=== PATIENT | male | born 1955 | race Caucasian/White ===

== ENCOUNTER 2018-01-22 10:26 | Inpatient (IN) | payer OTHER ==
--- NOTE | 2018-01-17 12:22 | HP ---
AMENDED REPORT NOW INCLUDES DESIGNATION COSIGNER - ESIGNED BEFORE ADJUSTMENT HISTORY AND PHYSICAL: DATE OF SURGERY: 01/22/18 DATE OF OFFICE VISIT: 01/09/18 SURGEON: Hanna Munoz MD.* (DICTATED BY CORRIE LEONE) PROCEDURE: Right total hip arthroplasty. CHIEF COMPLAINT: Right hip pain. HISTORY OF PRESENT ILLNESS: Mr. John is a 62-year-old gentleman with complaints of right hip pain. He has failed conservative management and elected to proceed with a right total hip arthroplasty, which is scheduled for 01/22/[address] Munoz. PAST MEDICAL HISTORY: Denies. PAST SURGICAL HISTORY: Right knee surgery, unknown. CURRENT MEDICATIONS: Ibuprofen 600 mg as needed. ALLERGIES: None. FAMILY HISTORY: Denies. SOCIAL HISTORY: This is a 62-year-old gentleman, he denies the use of tobacco, drugs or alcohol. REVIEW OF SYSTEMS: A complete 14-point review of systems was reviewed with the patient and was all negative and not contributory. PHYSICAL EXAMINATION GENERAL: He is well developed, well nourished, in no acute distress. VITAL SIGNS: He stands 69 inches tall, weighs 173 pounds, blood pressure 134/70 , heart rate 60. HEENT: Normocephalic, atraumatic. NECK: Supple. No palpable lymph nodes. PULMONARY: Lungs are clear to auscultation bilaterally. CARDIO: Regular rate and rhythm. Strong S1, S2. ABDOMEN: Soft, nontender, nondistended. NEUROLOGIC: He is alert and oriented x3. Cranial nerves II through XII are intact. MUSCULOSKELETAL: Right lower extremity, the skin is intact. There are no open wounds or abrasions. He walks with antalgic type gait favoring the right hip. He has decreased internal and external rotation of the right hip. He has 2+ dorsalis pedis pulses, intact sensation in his lower extremities. Muscle group strengths are intact at 5/5. ASSESSMENT AND PLAN: Mr. John is a 62-year-old gentleman with complaints of right hip pain secondary to end-stage osteoarthritis. He has failed conservative management and elected to proceed with a right total hip arthroplasty, which is scheduled for 01/22/[address] Munoz discussed the risks, the benefits of the surgery at today's visit and all of his questions were answered. He will follow up with Dr. Munoz 2 weeks after the surgery. CORRIE LEONE [id number]/[facility]PS #: [id number] SLICK
[~2018-01-22 10:26] MED LIST: Acetaminophen IV 1GM/100ML * 1,000 MG/100 ML VIAL IVPB ONE; Buffered Lidocaine 0.9% SYRIN* 5 ML/SYR SYRINGE INTRADERM ONE; Dexamethasone IV* 4 MG/ML 1 ML (4 MG) IV SLOW PU ONE; Famotidine IV* 10 MG/ML 2 ML (20 mg) IV ONE; Gabapentin CAP(*) 300 MG PO ONE; Ondansetron ODT TAB* 4 MG PO ONE; celeCOXIB CAP* 200 MG PO ONE
[2018-01-22] MEDS ORDERED: Famotidine IV* 10 MG/ML 2 ML (20 mg) ONE (10:28)
[2018-01-22] MEDS ORDERED: Dexamethasone IV* 4 MG/ML 1 ML (4 MG) ONE (10:29)
[2018-01-22] MEDS ORDERED: celeCOXIB CAP* 100 MG ONE (10:29)
[2018-01-22] MEDS ORDERED: Ondansetron ODT TAB* 4 MG ONE (10:29)
[2018-01-22] MEDS ORDERED: Gabapentin CAP(*) 300 MG ONE (10:29)
[2018-01-22] MEDS ORDERED: ceFAZolin 2 GM PREMIX (*) 2 GM/50 ML BAG IVPB ONE (10:30)
[2018-01-22] MEDS ORDERED: Acetaminophen IV 1GM/100ML * 100 ML ONE (11:25)
[2018-01-22] MEDS ORDERED: Lidocaine 2% PF * 5 ML VIAL ONE (12:43)
[2018-01-22] MEDS ORDERED: Bupivacaine 0.5% PF 10 ML VIAL INJ ONE (12:43)
[2018-01-22] MEDS ORDERED: fentaNYL* 50 MCG/ML 2 ML VIAL (100 MCG VIAL) ONE ×2 (12:43→15:11)
[2018-01-22] MEDS ORDERED: Midazolam* 1 MG/ML 5 ML VIAL (5 MG) ONE ×2 (12:43→14:36)
[2018-01-22] MEDS ORDERED: ROPIVACAINE 5 MG/ML 30 ML BTL (0.5%) ONE (13:26)
[2018-01-22] MEDS ORDERED: Ropivacaine (OR use only) 2 MG/ML 10 ML ONE (13:26)
[2018-01-22] MEDS ORDERED: fentaNYL* 50 MCG/ML 2 ML VIAL (100 MCG VIAL) IV PRN (16:07)
[2018-01-22] MEDS ORDERED: DiMENhydriNATE IV* 50 MG/ML VIAL IV PUSH PRN (16:07)
[2018-01-22] MEDS ORDERED: HYDROmorphone INJ* 1 MG/ML CARPUJECT SYRINGE IV PRN (16:07)
[2018-01-22] MEDS ORDERED: Naloxone* 0.4 MG/ML 1 ML VIAL IV PRN (16:07)
[2018-01-22] MEDS ORDERED: Ondansetron INJ* 2 MG/ML VIAL IV PRN (16:07)
[2018-01-22] MEDS ORDERED: oxyCODONE/Acetamin 5/325 MG* TAB PO PRN (16:07)
[2018-01-22] MEDS ORDERED: Magnesium Hydroxide LIQ* 30 ML UDC PO PRN (16:25)
[2018-01-22] MEDS ORDERED: traZODone TAB* 50 MG TAB PO PRN (16:30)
[2018-01-22] MEDS ORDERED: Morphine VIAL* 4 MG/ML VIAL (1 ml vial) IV PRN (16:30)
[2018-01-22] MEDS ORDERED: Ondansetron 40 MG VIAL* 2 MG/ML 20 ML VIAL IV PRN (16:30)
[2018-01-22] MEDS ORDERED: Polyethylene Glycol 3350* 17 GM PACKET PO PRN (16:30)
[2018-01-22] MEDS ORDERED: Cyclobenzaprine TAB* 10 MG PO PRN (16:30)
[2018-01-22] MEDS ORDERED: Propofol* 10 MG/ML 20 ML BTL IV PUSH ONE (16:48)
--- NOTE | 2018-01-22 17:10 | RAD ---
Indication: Right hip replacement. Single image of the right hip demonstrates acetabular cup in place with right femoral reamer in place. IMPRESSION: Intraoperative control films for right hip replacement.
--- NOTE | 2018-01-22 19:04 | RAD ---
Indication: Right hip replacement. 2 views of the right hip demonstrates right hip replacement in satisfactory position. IMPRESSION: Right hip replacement in satisfactory position.
--- NOTE | 2018-01-22 19:04 | RAD ---
Indication: Right hip replacement. Single low AP view the pelvis demonstrates the visualized pelvis to be unremarkable. Right hip replacement in satisfactory position. IMPRESSION: Bipolar right hip replacement is satisfactory position.
[2018-01-22] MEDS ORDERED: Warfarin TAB(*) 6 MG PO ONE (21:15)
[2018-01-22] MEDS: oxyCODONE/Acetamin 5/325 MG* TAB PO PRN (21:37)
[2018-01-22] MEDS: Enoxaparin(*) 40 MG/0.4 ML SYR SUBCUT SCH (21:38)
[2018-01-22] MEDS: Docusate CAP* 100 MG PO SCH (21:38)
[2018-01-22] MEDS: Ferrous Sulfate TAB* 325 MG PO SCH (21:38)
[2018-01-22] MEDS: Magnesium Hydroxide LIQ* 30 ML UDC PO SCH (21:42)
[2018-01-22] MEDS: ceFAZolin 1 GM in Dextrose (*) 1 GM/50 ML BAG IVPB SCH (22:24)
[2018-01-23 05:37] LABS: Hematocrit 29 % (42-52); Hemoglobin 9.9 g/dl (14.0-18.0); Mean Platelet Volume 7.9 um3 (7.4-10.4); Platelet Count 185 10^3/ul (150-450)
[2018-01-23] MEDS: oxyCODONE TAB* 5 MG TAB PO PRN ×3 (05:42→23:46)
[2018-01-23 05:56] LABS: EGFR Non-African American 77.9 (>60)
[2018-01-23] MEDS: ceFAZolin 1 GM in Dextrose (*) 1 GM/50 ML BAG IVPB SCH ×2 (06:13→15:03)
[2018-01-23] MEDS: oxyCODONE/Acetamin 5/325 MG* TAB PO PRN ×3 (09:26→21:05)
[2018-01-23] MEDS: Magnesium Hydroxide LIQ* 30 ML UDC PO SCH ×2 (09:26→21:05)
[2018-01-23] MEDS: Ferrous Sulfate TAB* 325 MG PO SCH ×2 (09:26→21:04)
[2018-01-23] MEDS: Docusate CAP* 100 MG PO SCH ×2 (09:26→21:05)
--- NOTE | 2018-01-23 09:39 | PN ---
Progress Note - Progress Note Date of Service: 01/23/18 SOAP: Subjective: 62 y/o s/p R GRIFFIN 01/[address] Munoz. VSS, afebrile overnight. Patient states increased pain, but pain medication working well. Pain with sitting upright, working with PT> Objective: General- Well appearing, NAD, AO sitting in chair comfortably MSK- RLE- DF/PF = b/l, PT 2+, negative homans sign, surgical dressing intact, no drainge noted, no induration, erythema noted, Vital Signs Temp 97.9 F 01/23/18 07:12 Pulse 61 01/23/18 07:12 Resp 16 01/23/18 09:26 BP 113/62 01/23/18 07:12 Pulse Ox 100 01/23/18 07:12 Intake & Output 01/22/18 01/23/18 01/23/18 18:59 06:59 18:59 Intake Total 2550 1050 330 Output Total 950 700 Balance 1600 350 330 Intake: IV Fluids 2550 NS 50ML, Cefazolin 2G 50 lr 2500 Oral 1050 330 Output: Aguilera 700 700 Estimated Blood Loss 250 Other: # Bowel Movements 0 Assessment: Stable 62 y/o s/p R GRIFFIN 01/[address] Munoz. Plan: - DVT prophylaxis- lovenox, coumadin 8mg tonight. - Continue PT/ OT - Follow up with Dr. Munoz within 10-14 days - H&H - stable - post-op IV ABX - running - [place] with case manageer- [facility] - Possible D/C tomorrow if placement OK'd Cyclobenzaprine HCl (Flexeril Tab*) 5 mg PO TID PRN PRN Reason: SPASMS Docusate Sodium (Colace Cap*) 100 mg PO BID [facility] Last Admin: 01/23/18 09:26 Dose: 100 mg Enoxaparin Sodium (Lovenox(*)) 40 mg SUBCUT Q24H [facility] Last Admin: 01/22/18 21:38 Dose: 40 mg Ferrous Sulfate (Ferrous Sulfate Tab*) 325 mg PO BID [facility] Last Admin: 01/23/18 09:26 Dose: 325 mg Cefazolin Sodium/Dextrose (Kefzol 1 Gm In Dextrose Duplex (*)) 1 gm in 50 mls @ 200 mls/hr IVPB Q8H [facility] Stop: 01/23/18 15:14 Last Admin: 01/23/18 06:13 Dose: 200 mls/hr Lactated Ringer's (Lactated Ringers 1000 Ml Bag*) 1,000 mls @ 75 mls/hr IV PER RATE [facility] Last Admin: 01/22/18 21:39 Dose: 75 mls/hr Lactulose (Lactulose*) 30 ml PO Q6H PRN PRN Reason: constipation Magnesium Hydroxide (Milk Of Magnesia Liq*) 30 ml PO BID [facility] Last Admin: 01/23/18 09:26 Dose: 30 ml Magnesium Hydroxide (Milk Of Magnesia Liq*) 30 ml PO Q6H PRN PRN Reason: constipation Morphine Sulfate (Morphine Vial*) 2 mg IV Q2H PRN PRN Reason: PAIN Ondansetron HCl (Zofran 40 Mg Vial*) 4 mg IV Q6H PRN PRN Reason: nausea Oxycodone HCl (Roxycodone Tab*) 10 mg PO Q4H PRN PRN Reason: PAIN - SEVERE Last Admin: 01/23/18 05:42 Dose: 10 mg Oxycodone/Acetaminophen (Percocet 5/325 Tab*) 2 tab PO Q4H PRN PRN Reason: PAIN - MODERATE Last Admin: 01/23/18 09:26 Dose: 2 tab Oxycodone/Acetaminophen (Percocet 5/325 Tab*) 1 tab PO Q4H PRN PRN Reason: PAIN Polyethylene Glycol/Electrolytes (Miralax*) 17 gm PO DAILY PRN PRN Reason: Constipation Trazodone HCl (Desyrel Tab*) 25 mg PO BEDTIME PRN PRN Reason: insomnia Last Admin: 01/22/18 22:56 Dose: 25 mg Warfarin Sodium (Coumadin Tab(*)) 8 mg PO ONCE@1700 ONE PRN Reason: Protocol Stop: 01/23/18 17:01
[2018-01-23] MEDS ORDERED: Warfarin TAB(*) 4 MG PO ONE (17:00)
[2018-01-23] MEDS: Enoxaparin(*) 40 MG/0.4 ML SYR SUBCUT SCH (21:06)
--- NOTE | 2018-01-24 02:14 | OP ---
OPERATIVE REPORT: DATE OF OPERATION: 01/22/18 DATE OF : 51 ATTENDING SURGEON: Hanna Munoz MD HAND CHAIN MAKER: CORRIE Vargas Ms. did help throughout the procedure with preparation of the leg, wound retraction, manipul ation of the hip, and wound closure. ANESTHESIOLOGIST: Dr. Ramírez. ANESTHESIA: Spinal. PRE-OP DIAGNOSIS: Severe end-stage degenerative osteoarthritis of the right hip joint. POST-OP DIAGNOSIS: Severe end-stage degenerative osteoarthritis of the right hip joint. OPERATIVE PROCEDURE: Right total hip arthroplasty. COMPLICATIONS: None. ESTIMATED BLOOD LOSS: 300 cc. SPECIMEN: Femoral head and acetabular reaming sent to pathology. HARDWARE USED: This is uncemented [employer] total hip arthroplasty hardware. For the cup, a Tritanium cluster hole shell 54E, a single 20 mm screw was used. For liner, a Trident X3 0-degree polyethylen e insert 40E. For the stem, an Accolade TMZF size 3 with a 127-degree neck. For the head, a Biolox delta ceramic V40 femoral head 40 +0. BRIEF HISTORY/INDICATION: Mr. John is a 62-year-old inmate with years of increasingly severe right hip pain. Radiographs showed severe [id number] arthritis. He failed conservative treatment with activity modification, anti- inflammatories, and physical therapy. Due to continued pain and decreas ed quality of life, he wished to proceed with right total hip arthroplasty. Informed consent was obt ained from the patient. He understood the risks of surgery included, but were not limited to bleedin g, infection, damage to nearby structures, continued pain, need for further surgery, intraoperative f racture, nerve palsy, hardware failure or loosening, dislocation, leg length discrepancy, stroke, hea rt attack, blood clot, and . He wished to proceed. INTRAOPERATIVE FINDINGS: Intraoperatively, the patient was noted to have complete loss of cartilage along the acetabulum and femoral head. He had significant osteophyte formation around the femoral he ad and neck. DESCRIPTION OF PROCEDURE: Mr. John was identified in the preanesthesia unit. Right lower extremity was marked as the correct operative side. Informed consent was signed and placed in the chart. The patient was taken to the operating room and placed under spinal anesthesia. A Aguilera catheter was pl aced. The patient was placed in the left lateral decubitus position on the pegboard. All bony promi nences were well padded. Right lower extremity was prepped and draped in the usual sterile fashion. Preop time-out was made to correctly identify the patient's side and site. Appropriate perioperativ e antibiotics were given within 1 hour of incision. A 12-cm posterior hip incision was made with a 10 blade and carried down to the lateral fascial layer . Lateral fascial layer was incised in line with the skin incision. A Charnley retractor was placed . The piriformis and conjoined tendons were identified and elevated off the posterolateral femur wit h electrocautery. These were tagged with #5 Ethibond. Next, the electrocautery was used to make a po sterolateral capsular flap. This was tagged with #5 Ethibond. The hip was carefully dislocated. Le sser troch to the center of the femoral head measured 60 mm. The oscillating saw was used to make th e appropriate femoral neck cut. Femoral head was carefully removed. The femur was retracted anteriorly. After appropriate placement of retractors, the acetabulum was we ll visualized. A long-handled knife was used to sharply remove any remaining labrum from the acetabu lar rim. The acetabulum was sequentially reamed up to a size 53. Bleeding subchondral bone bed was obtained. A 53 trial had excellent fit with a appropriate anteversion and abduction angle. Final im plant chosen was a 54E Tritanium cluster hole shell. This was impacted into the acetabulum. Stabili ty of the cup was excellent. There was appropriate anteversion and abduction angle. Next, a 20-mm s crew was placed in the superoposterior quadrant. A 40E Trident 0-degree polyethylene insert was chos en as the final insert. The insert was impacted into the acetabulum. Stability of the insert was ch ecked and rechecked and noted to be stable. Attention was next turned to preparation of the femoral canal. A canal finder was used to enter the proximal femur. Proximal femur was sequentially broached up to a size 3. Size-3 broach had excellen t fit. A 127 neck trial was chosen as well as a 40 +0 head trial. Lesser troch to center of the fem oral head measured 61 mm. The hip was reduced and taken through a range of motion. The hip was stab le in all positions. Soft tissue tension and leg length were deemed to be appropriate. The hip was carefully dislocated. All trials were removed. Final implant chosen was an Accolade TMZF size 3 wit h a 127-degree neck. The femoral stem was impacted into the femoral canal without difficulty. [place] lent stability and appropriate anteversion were obtained. A 40 +0 Biolox delta ceramic V40 femoral h ead was chosen as the final implant. This was impacted on to the femoral neck without difficulty. T he hip was reduced and taken through a range of motion. The hip was stable in all positions. There was appropriate soft tissue tension and leg lengths. The hip was copiously irrigated with sterile sa line. Previously tagged tendon and capsule were reapproximated to the posterolateral femur through 2 trochanteric drill holes. The lateral fascial layer was closed using interrupted #[address] of the incision was closed in a layered fashion using 0 and 2- 0 Vicryl. Skin was closed using ru nning 3-0 Monocryl suture and Dermabond. Sterile Adaptic, 4x4s, and paper tape were placed over the i ncision. The patient's anesthesia was reversed without difficulty. He was taken to the PACU in stable conditi on. Intended weightbearing will be weightbearing as tolerated. Intended DVT prophylaxis will be Coum gagan with a Lovenox bridge. [id number]/[facility] #: [id number]
[2018-01-24] MEDS: oxyCODONE TAB* 5 MG TAB PO PRN (04:27)
[2018-01-24 05:56] LABS: Hematocrit 26 % (42-52); Hemoglobin 8.8 g/dl (14.0-18.0); Platelet Count 162 10^3/ul (150-450)
[2018-01-24 06:01] LABS: INR 1.19 (0.77-1.02)
[2018-01-24] MEDS: oxyCODONE/Acetamin 5/325 MG* TAB PO PRN ×2 (07:42→16:20)
[2018-01-24] MEDS: Ferrous Sulfate TAB* 325 MG PO SCH (08:16)
[2018-01-24] MEDS: Magnesium Hydroxide LIQ* 30 ML UDC PO SCH (08:16)
[2018-01-24] MEDS: Docusate CAP* 100 MG PO SCH (08:16)
--- NOTE | 2018-01-24 15:00 | PN ---
Progress Note - Progress Note Date of Service: 01/24/18 SOAP: Subjective: 62 y/o s/p R GRIFFIN 01/[address] Munoz. VSS, afebrile overnight. Pain well controlled. Pain with sitting comfortably in chair. Objective: Vital Signs Temp 98.3 F 01/24/18 11:30 Pulse 74 01/24/18 11:30 Resp 16 01/24/18 11:30 BP 121/58 01/24/18 11:30 Pulse Ox 99 01/24/18 11:30 Intake & Output 01/23/18 01/24/18 01/24/18 18:59 06:59 18:59 Intake Total 2702 750 1130 Output Total 300 1750 500 Balance 2402 -1000 630 Intake: IV Fluids 1327 LR 1327 IVPB 165 LR 165 Oral 2768 543 2966 Output: Urine 300 1750 500 Laboratory Results - last 24 hr 01/24/18 01/24/18 05:27 05:27 Hgb 8.8 L Hct 26 L Plt Count 162 MPV 8.0 INR (Anticoag Therapy) 1.19 H General: WN, WD, NAD, A&O, sitting comfortably in chair, guards in room. RLE: Dressing clean, removed. Incision C/D/I with no drainage or induration or erythema. DF/PF = b/l, PT 2+, calf soft, negative homans sign. Dressing replaced. Assessment: 62 y/o s/p R GRIFFIN 01/[address] Munoz. Plan: - [facility] - DVT prophylaxis- 325 mg ASA BID. - Continue PT/ OT - Follow up with Dr. Munoz within 10-14 days - H&H - stable
[2018-01-24 15:19] VITALS: BP 115/57
--- NOTE | 2018-01-24 21:42 | DS ---
AMENDED REPORT NOW INCLUDES COSIGNER DESIGNATION - ESIGNED BEFORE ADJUSTMENTS DISCHARGE SUMMARY: DATE OF ADMISSION: 01/22/18 DATE OF DISCHARGE: 01/24/18 ATTENDING PHYSICIAN: Hanna Munoz MD * (DICTATED BY CORRIE BUSTILLOS) CHIEF COMPLAINT: Right hip osteoarthritis. DISCHARGE DIAGNOSIS: Status post right total hip arthroplasty. PROCEDURE: Right total hip arthroplasty. CONSULTATIONS: Physical Therapy, Occupational Therapy. BRIEF HISTORY: Mr. John is a 62-year-old male, who was admitted to [facility] on 01/22/18, where he underwent a right total hip arthroplasty with Dr. Munoz. HOSPITAL COURSE: Mr. John is a 62-year-old male, who was admitted to [facility] on 01/22/18, where he underwent a right total hip arthroplasty with Dr. Munoz. Postoperatively, he recovered on the short-stay unit. On postop day 1, his Aguilera catheter was removed and he was able to urinate on his own. He was advanced to regular diet without difficulty. Pain was controlled with p.o. oxycodone. Labs and vital signs remained stable. He was able to weight bear as tolerated on his right lower extremity. He was advanced appropriately with physical therapy and occupational therapy. DVT prophylaxis was managed with Lovenox and Coumadin on the unit. By postoperative day 2, he was orthopedically and medically stable for discharge to [facility] with services. PHYSICAL EXAMINATION: Well-nourished, well-developed, in no acute distress, alert and oriented, sitting comfortably in a chair with guards in the room. Vital Signs: Temperature 98.3, pulse 74, respiration 16, blood pressure 121/58. Examination of the right lower extremity showed dressing that was clean. His incision was clean, dry, and intact with no drainage, induration, or erythema. He had good dorsi and plantarflexion bilaterally. PT pulse was 2+. Calf was soft. Sensation intact to light touch distally. The dressing was replaced today. LABORATORY DATA: Laboratory results on date of discharge: Hemoglobin 8.8, hematocrit 26, platelet count 162. INR of 1.19. DIAGNOSTIC STUDIES: Radiographs of the right hip demonstrate right total hip arthroplasty with satisfactory prosthesis placement and no acute bony abnormalities. DISCHARGE MEDICATIONS: 1. Ibuprofen 600 mg as needed for pain. 2. Percocet 5/325 one to two tabs every 4 to 6 hours as needed for pain. 3. Aspirin 325 b.i.d. for DVT prophylaxis. CONDITION ON DISCHARGE: Stable. DISCHARGE INSTRUCTIONS: Mr. John is a 62-year-old male, who is postoperative day 2 status post right total hip arthroplasty, which was uncomplicated. He is medically and orthopedically stable for discharge to the [facility] where he will recover on the medical unit. Prior to discharge his labs and vital signs were stable. He will take 325 aspirin b.i.d. for DVT prophylaxis. He will remain weightbearing as tolerated on the right lower extremity. He will take Percocet as needed for pain control. He will follow up with Dr. Munoz in 10 to 14 days for incision check and suture removal. He was instructed to tell the medical foster that he will be on immediately if he develops chest pain or shortness of breath. If he develops fever or increasing pain or redness, he should call the office. CORRIE BUSTILLOS [id number]/[facility] #: [id number] SLICK
== END 2018-01-24 16:25 | disposition home or self-care (01) | DRG 301 ==
LOC: AA 10:26 → SSU 20:49
PROVIDERS: ADMIT Orthopaedic Surgery Adult Reconstructive Orthopaedic Surgery; ATTEND Orthopaedic Surgery Adult Reconstructive Orthopaedic Surgery
PROC: 0SR904A Replacement of Right Hip Joint with Ceramic on Polyethylene Synthetic Substitute, Uncemented, Open Approach (ICD-10-PCS; principal; 2018-01-22 13:00)
DX: M16.11 Unilateral primary osteoarthritis, right hip (principal); M25.751 Osteophyte, right hip; Z79.82 Long term (current) use of aspirin
CPT/HCPCS: 36415; 72170; 80048; 85014; 85018; 85049; 85610; A9270-GY; C1713; C1776; J0690; J1100; J1650; J2250; J2704; J2795; J3010

== ENCOUNTER → 2018-12-10 07:13 | Day surgery (SDC) | payer OTHER ==
[2018-12-01 13:33] VITALS: BP 143/88
[~2018-12-10 07:13] MED LIST changes: -Acetaminophen IV 1GM/100ML * 1,000 MG/100 ML VIAL IVPB ONE; +Bacitracin INJECTION* 50,000 UNITS ONE; -Buffered Lidocaine 0.9% SYRIN* 5 ML/SYR SYRINGE INTRADERM ONE; +Buffered Lidocaine 1% SYRIN* 1 ML/SYRINGE INTRADERM ONE; -Gabapentin CAP(*) 300 MG PO ONE; +Lactated Ringers 1000 ML Bag* 1,000 ML IV SCH; +Lidocain 1% EPI 1:100,000 * 30 ML MDV ONE; -Ondansetron ODT TAB* 4 MG PO ONE; +Thrombin 5,000 UNITS* 1 APPLIC KIT - topical use - TOPICAL ONE; -celeCOXIB CAP* 200 MG PO ONE
== END | disposition home or self-care (01) ==
LOC: OR 07:13
PROVIDERS: ATTEND Neurological Surgery
DX: M51.26 Other intervertebral disc displacement, lumbar region (principal); Z53.9 Procedure and treatment not carried out, unspecified reason
CPT/HCPCS: A9270-GY

== ENCOUNTER 2018-12-17 05:38 | Observation (INO) | payer OTHER ==
[~2018-12-17 05:38] MED LIST changes: -Bacitracin INJECTION* 50,000 UNITS ONE; -Dexamethasone IV* 4 MG/ML 1 ML (4 MG) IV SLOW PU ONE; -Famotidine IV* 10 MG/ML 2 ML (20 mg) IV ONE; -Lactated Ringers 1000 ML Bag* 1,000 ML IV SCH; -Lidocain 1% EPI 1:100,000 * 30 ML MDV ONE; -Thrombin 5,000 UNITS* 1 APPLIC KIT - topical use - TOPICAL ONE
[2018-12-17] MEDS ORDERED: Famotidine IV* 10 MG/ML 2 ML (20 mg) IV ONE (06:00)
[2018-12-17] MEDS ORDERED: Lactated Ringers 1000 ML Bag* 1,000 ML IV SCH ×2 (06:00→10:00)
[2018-12-17] MEDS ORDERED: Famotidine IV* 10 MG/ML 2 ML (20 mg) ONE (06:30)
[2018-12-17] MEDS ORDERED: Buffered Lidocaine 1% SYRIN* 1 ML/SYRINGE INTRADERM ONE (06:30)
[2018-12-17] MEDS ORDERED: ceFAZolin 2 GM PREMIX in ORs 2 GM/50 ML BAG IVPB ONE (06:30)
[2018-12-17] MEDS ORDERED: Thrombin 5,000 UNITS* 1 APPLIC KIT - topical use - TOPICAL ONE (06:49)
[2018-12-17] MEDS ORDERED: Lidocain 1% EPI 1:100,000 * 30 ML MDV ONE (06:49)
[2018-12-17] MEDS ORDERED: Bacitracin INJECTION* 50,000 UNITS ONE (06:49)
[2018-12-17] MEDS ORDERED: Propofol* 10 MG/ML 20 ML BTL ONE (07:07)
[2018-12-17] MEDS ORDERED: Lidocaine 2% PF * 5 ML VIAL ONE (07:07)
[2018-12-17] MEDS ORDERED: Dexamethasone IV* 4 MG/ML 1 ML (4 MG) ONE (07:07)
[2018-12-17] MEDS ORDERED: Cisatracurium* 2 MG/ML MDV 5 ML ONE (07:07)
[2018-12-17] MEDS ORDERED: fentaNYL* 50 MCG/ML 5 ML VIAL (250 MCG VIAL) ONE (07:07)
[2018-12-17] MEDS ORDERED: Ondansetron INJ* 2 MG/ML VIAL ONE (07:07)
[2018-12-17] MEDS ORDERED: Midazolam* 1 MG/ML 5 ML VIAL (5 MG) ONE (07:08)
[2018-12-17] MEDS ORDERED: EPHEDrine (Pressors)* 50 MG/ML VIAL ONE (08:15)
[2018-12-17] MEDS ORDERED: fentaNYL* 50 MCG/ML 2 ML VIAL (100 MCG VIAL) IV PRN (08:48)
[2018-12-17] MEDS ORDERED: Ondansetron INJ* 2 MG/ML VIAL IV PRN ×2 (08:48→09:15)
[2018-12-17] MEDS ORDERED: Naloxone* 0.4 MG/ML 1 ML VIAL IV PRN (08:48)
[2018-12-17] MEDS ORDERED: Neostigmine Methylsulfate* 1 MG/ML 10 ML VIAL (1 mg/ml) ONE (08:56)
[2018-12-17] MEDS ORDERED: Glycopyrrolate IV* 0.2 MG/ML 1 ML VIAL ONE (08:56)
[2018-12-17] MEDS ORDERED: HYDROcodone/ACETAMIN 5-325 MG* 1 TAB PO PRN (09:15)
[2018-12-17] MEDS ORDERED: Magnesium Hydroxide LIQ* 30 ML UDC PO PRN (09:15)
[2018-12-17] MEDS ORDERED: HYDROcodone/ACETAMIN 5-325 MG* 1 TAB ONE (09:43)
[2018-12-17] MEDS: Acetaminophen TAB* 325 MG PO PRN (14:41)
[2018-12-18] MEDS: Acetaminophen TAB* 325 MG PO PRN ×2 (04:38→11:14)
--- NOTE | 2018-12-18 08:04 | PN ---
Progress Note - Progress Note Date of Service: 12/18/18 SOAP: Subjective: [S/p lumbar discectomy L2-3 left POD #1 Pt feeling well this morning, right thigh pain improved. Numbness/tingling RLE persistent Ambulating independently Pain well controlled with PO medication Eating and drinking well Denies headache, nausea] Objective: [ Vital Signs: Temp Pulse Resp BP Pulse Ox 97.9 F 64 16 141/80 97 12/18/18 04:30 12/18/18 04:30 12/18/18 07:25 12/18/18 04:30 12/18/18 04:30 General: Alert, laying in bed comfortably Neuro: right proximal leg numbness] Assessment: [Satisfactory post-op] Plan: [1. Discharge to correctional facility today 2. Discharge instructions discussed]
[2018-12-18 11:20] VITALS: BP 149/81
--- NOTE | 2018-12-25 21:48 | DS ---
DISCHARGE SUMMARY: DATE OF ADMISSION: 12/17/18 DATE OF DISCHARGE: 12/18/18 ATTENDING PHYSICIAN: Dr. Meléndez.* (DICTATED BY CORRIE ANGELES) DISCHARGE DIAGNOSIS: Herniated nucleus pulposus, L2-3, left. SPECIAL PROCEDURE: Lumbar diskectomy, L2-3, left. HOSPITAL COURSE: This 63-year-old male was seen in the office with left-sided lumbar radiculopathy consistent of pain, numbness, and tingling in the left anterior thigh down to the knee. He had not improved with activity modification and medication over the previous several months. He, therefore, elected for surgical intervention. On the day of admission, he was taken to surgery where under general anesthesia, a lumbar diskectomy of L2-3 on the left operation was carried out. Postoperatively, he was feeling well and the left lower extremity symptoms were improved. The numbness and tingling were persistent, although the pain had resolved. He was ambulating independently. He was eating, drinking, and voiding without difficulty. He denied headache and nausea. On the first postoperative day, he was discharged to the correctional facility. Patient was stable at time of discharge. DISCHARGE MEDICATIONS: Pain medication recommendations were made. FOLLOW UP: He will follow up in the office with Dr. Meléndez in approximately 2 weeks. DISCHARGE INSTRUCTIONS: wound care and activity level provided. CORRIE ANGELES [id number]/[facility] #: [id number] [facility]
--- NOTE | 2019-01-04 10:01 | OP ---
DATE OF OPERATION: 12/17/18 - ROOM #353 DATE OF : 51 SURGEON: Kareem Meléndez MD TOOL DESIGN DRAFTER: CORRIE Sweeney ANESTHESIA: General. PRE-OP DIAGNOSIS: Herniated nucleus pulposus at L2-3 on the left. POST-OP DIAGNOSIS: Herniated nucleus pulposus at L2-3 on the left. OPERATIVE PROCEDURE: Lumbar microdiskectomy at L2-3 on the left. DESCRIPTION OF PROCEDURE: After satisfactory general anesthesia was obtained, the patient was placed on the operating table in the prone position with the chest supported on the Jesse frame and the back slightly flexed. The lumbar region was then clipped, prepped and draped in a sterile manner for lumbar laminectomy, and a skin incision outlined from L2 to L3. This incision was infiltrated with 1% Xylocaine with epinephrine, after which it was turned down sharply to the level of the lumbar fascia. The fascia was divided along the spinous processes of L2 and L3 and the paraspinal musculature stripped away from the posterior elements using periosteal elevator and monopolar cautery. An intraoperative x-ray was obtained verifying proper interspace localization, after which a partial hemilaminectomy was carried out at this level by removing the inferior aspect of the L2 lamina and medial aspect of the facet complex with a combination of the Midas Masoud drill and Kerrison rongeurs. This was carried superiorly until the attachment of the ligamentum flavum was taken down. Additional superior exposure was obtained as preoperative imaging had suggested the superior migration of the disk fragment. A generous foraminotomy was carried out over the L3 nerve root. At this point of the procedure, the operative microscope was brought into the field and the remainder of the procedure was done under microscopic visualization. With microdissection, the L2 nerve root could be identified and projecting into the axillary region of the L2 nerve root exposure was freely extruded disk material. A thin row of posterior longitudinal ligament was dissected free and multiple fragments of disk removed from this region, which basically was over the L2 vertebral body. The disk space itself was palpated and was noted to be firm and was not entered. After assuring adequate hemostasis, the wound was thoroughly irrigated , after which a piece of Gelfoam was placed over the laminectomy defect. The fascia was then reapproximated with 0 Vicryl suture. The subcutaneous tissue was closed with 2-0 and 3-0 Vicryl suture and the skin closed with skin clips. The estimated blood loss was less than 50 cc and the final sponge, padding and needle counts were correct. The patient was taken to the recovery room, extubated and in stable condition. [id number]/[facility] #: [id number] MTDD
== END 2018-12-18 14:05 ==
LOC: OR 05:38 → SSU 09:15 → EEVIPCON 09:15
PROVIDERS: ADMIT Neurological Surgery; ATTEND Neurological Surgery
DX: M51.26 Other intervertebral disc displacement, lumbar region (principal); M79.605 Pain in left leg
CPT/HCPCS: 72100; 96372; 96374; 96375; A9270-GY; G0378; J0690; J1100; J2250; J2405; J2704; J2710; J3010

== ENCOUNTER 2022-08-08 09:33 | Observation (INO) ==
[~2022-08-08 09:33] MED LIST changes: +Buffered Lidocaine 1% SYRIN 1 ml INTRADERM ONE; -Buffered Lidocaine 1% SYRIN* 1 ML/SYRINGE INTRADERM ONE; +Lactated Ringers 1000 ml BAG 1,000 ML IV SCH; +Naloxone 0.4 mg VIAL 0.4 mg/ml 1 ml VIAL IV PRN; +Ondansetron 4 mg VIAL 2 MG/ML 2 ml VIAL IV PRN; +fentaNYL 100 mcg/2 ml 50 MCG/ML VIAL IV PRN
[2022-08-08] MEDS ORDERED: ceFAZolin 2 GM PREMIX 2 GM/50 ML BAG ONE (10:02)
[2022-08-08 10:40] LABS: Hematocrit 40 % (42-52); Hemoglobin 13.3 g/dL (14.0-18.0); Mean Corpuscular HGB Conc 33 g/dL (31-36); Mean Corpuscular Hemoglobin 30 pg (27-31); Mean Corpuscular Volume 90 fL (80-94); Platelet Count 174 10^3/uL (150-450); Red Blood Count 4.42 10^6 /uL (4.18-5.48); Red Cell Distribution Width 13 % (10-15); White Blood Count 3.2 10^3/uL (3.5-10.8)
[2022-08-08 10:50] LABS: INR 1.04 (0.88-1.18)
[2022-08-08 11:14] LABS: Calcium 8.3 mg/dL (8.6-10.3); Potassium 4.1 mmol/L (3.5-5.0); eGFR CKD-EPI 64.6 (>60)
[2022-08-08] MEDS ORDERED: Lidocaine 2% PF 5 ML VIAL ONE ×2 (11:27→12:44)
[2022-08-08] MEDS ORDERED: Midazolam 2 mg/2 ml VIAL 1 mg/ml 2 ml VIAL (2 mg) ONE ×2 (11:27→13:13)
[2022-08-08] MEDS ORDERED: Bupivacaine 0.5% SDV PF 30ML VIAL ONE (11:27)
[2022-08-08] MEDS ORDERED: Dexamethasone IV 4 MG/ML VIAL 1 ml VIAL ONE ×2 (11:27→13:38)
[2022-08-08] MEDS ORDERED: ROPIVACAINE 5 MG/ML 30 ML BTL (0.5%) ONE (12:11)
[2022-08-08] MEDS ORDERED: Phenylephrine IV 10 MG/ML 1 ml VIAL ONE (12:44)
[2022-08-08] MEDS ORDERED: fentaNYL 100 mcg/2 ml 50 MCG/ML VIAL ONE (13:13)
[2022-08-08] MEDS ORDERED: Ondansetron 4 mg VIAL 2 MG/ML 2 ml VIAL ONE (13:38)
[2022-08-08] MEDS ORDERED: Morphine 2 MG/ML SYRINGE IV PRN (14:18)
[2022-08-08] MEDS ORDERED: Ondansetron 4 mg VIAL 2 MG/ML 2 ml VIAL IV PRN (14:18)
[2022-08-08] MEDS ORDERED: Ondansetron ODT 4 mg TAB 4 MG TAB PO PRN (14:18)
[2022-08-08] MEDS ORDERED: Magnesium Hydroxide LIQ 30 ML UDC PO PRN (14:18)
[2022-08-08] MEDS ORDERED: Lactulose 30 ml UDC PO PRN (14:18)
[2022-08-08] MEDS ORDERED: Propofol 10 MG/ML 20 ML BTL ONE (14:38)
[2022-08-08] MEDS ORDERED: Glycopyrrolate IV 0.2 MG/ML 1 ML VIAL ONE (14:41)
[2022-08-08] MEDS: Lactated Ringers 1000 ml BAG 1,000 ML IV SCH (17:51)
[2022-08-08] MEDS: ceFAZolin 1 GM ADVAN 1 GM in NS 0.9% 50 ML 50 ML IVPB SCH (21:36)
[2022-08-08] MEDS: Magnesium Hydroxide LIQ 30 ML UDC PO SCH (21:38)
[2022-08-09] MEDS: ceFAZolin 1 GM ADVAN 1 GM in NS 0.9% 50 ML 50 ML IVPB SCH ×2 (05:02→13:35)
[2022-08-09] MEDS: Lactated Ringers 1000 ml BAG 1,000 ML IV SCH (05:03)
[2022-08-09 06:05] LABS: Hematocrit 37 % (42-52); Hemoglobin 12.1 g/dL (14.0-18.0); Mean Platelet Volume 8.8 fL (7.4-10.4); Platelet Count 169 10^3/uL (150-450)
[2022-08-09 06:53] LABS: Potassium 3.9 mmol/L (3.5-5.0); eGFR CKD-EPI 78.2 (>60)
[2022-08-09] MEDS ORDERED: Vitamin THERAPEUTIC TAB PO SCH (09:00)
[2022-08-09] MEDS: Magnesium Hydroxide LIQ 30 ML UDC PO SCH (09:30)
[2022-08-09 11:29] VITALS: BP 106/69
== END 2022-08-09 14:40 ==
LOC: AA 09:33 → INTOOBSV 09:33 → SSU 17:29
PROVIDERS: ADMIT Orthopaedic Surgery Adult Reconstructive Orthopaedic Surgery; ATTEND Orthopaedic Surgery Adult Reconstructive Orthopaedic Surgery